=== PATIENT | male | born 1965 | race Hispanic/Latino ===

== ENCOUNTER 2020-07-07 11:09 | Inpatient (IN) | payer OTHER ==
[~2020-07-07] VITALS: Ht 167.6 cm; Wt 86.2 kg
[2020-07-07 11:26] LABS: ABG BASE EXCESS 0.7 mmol/L (-2.0-3.0); ABG HCO3 23.3 mmol/L (21.0-28.0); ABG OXYGEN SATURATION 83.6 % (95.0-99.0); ABG PCO2 32 mmHg (35-48)
[2020-07-07 11:31] LABS: BASOPHILS % (AUTO) 0.3 % (0.0-5.0); EOSINOPHILS % (AUTO) 1.5 % (0.0-8.0); HEMATOCRIT 45.6 % (42-54); LYMPHOCYTES % (AUTO) 11.4 % (21.0-51.0); MEAN CORPUSCULAR HEMOGLOBIN 29.6 pg (27.0-33.0); MEAN CORPUSCULAR HGB CONC 32.5 g/dL (32.0-36.0); MEAN CORPUSCULAR VOLUME 91.2 fL (79-99); NEUTROPHILS % (AUTO) 80.1 % (40.0-77.0); PLATELET COUNT (AUTO) 210 K/uL (130-400); WHITE BLOOD COUNT (AUTO) 11.3 K/uL (4.8-10.8)
[2020-07-07] MEDS ORDERED: ALBUTEROL INHALER 90MCG/INH IH ONE (11:32)
[2020-07-07] MEDS ORDERED: DEXAMETHASONE SOD PHOSPHATE 10MG/ML 1ML VIAL ONE (11:33)
[2020-07-07] MEDS ORDERED: ASPIRIN 325 MG TABLET ONE (11:33)
[2020-07-07] MEDS ORDERED: AZITHROMYCIN 500MG+NS 250ML 250 ML IV ONE (11:34)
[2020-07-07] MEDS ORDERED: CEFTRIAXONE SODIUM 1 GM ONE (11:34)
[2020-07-07 11:36] LABS: CARBON DIOXIDE 24 mmol/L (21-32); CHLORIDE 101 mmol/L (101-111); CREATININE 0.8 mg/dL (0.5-1.5); GLOMERULAR FILTR. RATE CALC 107 mL/min (>60); GLUCOSE,RANDOM 136 mg/dL (70-105); INR 1.19 (0.85-1.15); POTASSIUM 4.6 mmol/L (3.5-5.1); PROTHROMBIN TIME 12.8 SEC (9.6-11.6); SODIUM SERUM 133 mmol/L (136-145); UREA NITROGEN, BLOOD 12 mg/dL (7-18)
[2020-07-07 11:47] LABS: ALANINE AMINOTRANSFERASE 38 U/L (12-78); ALBUMIN 2.1 g/dL (3.5-5.0); ASPARTATE AMINOTRANSFERASE 49 U/L (10-37); BILIRUBIN,TOTAL 0.8 mg/dL (0.2-1.0); CREATINE KINASE, TOTAL 79 U/L (21-232); MYOGLOBIN 29 ng/mL (10-92); TOTAL PROTEIN, SERUM 8.3 g/dL (6.0-8.3); TROPONIN I < 0.04 ng/mL (0.00-0.06)
[2020-07-07 12:37] LABS: APPEARANCE,URINE Clear (CLEAR); BILIRUBIN,URINE Negative (NEGATIVE); COLOR,URINE Yellow (YELLOW); GLUCOSE, URINE (UA) Negative (NEGATIVE); KETONES,URINE 15 mg/dL (NEGATIVE); LEUKOCYTE ESTERASE ,URINE Negative (NEGATIVE); NITRATE,URINE Negative (NEGATIVE); OCCULT BLOOD,URINE Moderate (NEGATIVE); PROTEIN,URINE Negative (NEGATIVE)
[2020-07-07 12:57] LABS: BACTERIA,URINE None Seen /HPF (None Seen); TRANSITIONAL EPI CELLS,URINE Moderate /HPF (None Seen); WBC,URINE None Seen /HPF (0-1)
[2020-07-07] MEDS: DOXYCYCLINE 100MG+NS 250ML 250 ML IV SCH (14:00)
[2020-07-07] MEDS ORDERED: VANCOMYCIN PROTOCOL PER PHARMACY IV SCH (14:00)
[2020-07-07] MEDS: CEFEPIME HCL 2 GM VIAL IVP SCH ×2 (14:00→22:00)
[2020-07-07] MEDS: FUROSEMIDE 10 MG/ML 2ML VIAL IV SCH ×2 (14:00→22:00)
[2020-07-07] MEDS ORDERED: ERGOCALCIFEROL (VITAMIN D2) 50,000 UNIT CAPSULE PO ONE (14:15)
[2020-07-07 14:25] LABS: MAGNESIUM 2.3 mg/dL (1.80-2.40)
[2020-07-07 14:32] LABS: CRP QUANTITATIVE 162.3 mg/L (0.00-9.0)
[2020-07-07] MEDS: ENOXAPARIN SODIUM 40 MG/0.4 ML SYRINGE SQ SCH ×2 (15:00→21:00)
[2020-07-07] MEDS ORDERED: COMPOUND IV REFRIGERATED 1 EACH IVSOLN MISC PRN (15:00)
[2020-07-07] MEDS ORDERED: ENOXAPARIN SODIUM 40 MG/0.4 ML SYRINGE SQ ONE ×2 (15:06→22:30)
[2020-07-07] MEDS ORDERED: ERGOCALCIFEROL (VITAMIN D2) 50,000 UNIT CAPSULE ONE (15:06)
[2020-07-07] MEDS ORDERED: CEFEPIME HCL 2 GM VIAL ONE ×2 (16:14→22:30)
[2020-07-07] MEDS ORDERED: FUROSEMIDE 10 MG/ML 2ML VIAL ONE ×2 (16:14→22:29)
[2020-07-07] MEDS ORDERED: DOXYCYCLINE 100MG+NS 250ML 250 ML IV ONE (16:15)
[2020-07-07] MEDS: INSULIN HUMULIN R 100 UNIT/ML 3ML SQ SCH ×2 (16:30→21:00)
[2020-07-07] MEDS: VANCOMYCIN 1.75 GM in SODIUM CHLORIDE 0.9% 250 ML IV SCH (17:00)
[2020-07-07 17:19] LABS: HEMOGLOBIN A1C 7.4 % (4.0-6.0)
[2020-07-07] MEDS: FAMOTIDINE/PF 20 MG/2 ML VIAL IV SCH (21:00)
[2020-07-07] MEDS ORDERED: FAMOTIDINE/PF 20 MG/2 ML VIAL IV ONE (22:30)
[2020-07-07] MEDS ORDERED: SODIUM CHLORIDE 0.9% 50 ML IV ONE (22:31)
[2020-07-08] VITALS (67 sets, daily range): BP systolic 93–146; BP diastolic 60–93
[2020-07-08] MEDS: DOXYCYCLINE 100MG+NS 250ML 250 ML IV SCH ×2 (02:00→12:53)
[2020-07-08 04:40] LABS: BASOPHILS % (AUTO) 0.1 % (0.0-5.0); EOSINOPHILS % (AUTO) 0.1 % (0.0-8.0); HEMATOCRIT 43.6 % (42-54); LYMPHOCYTES % (AUTO) 9.2 % (21.0-51.0); MEAN CORPUSCULAR HEMOGLOBIN 29.8 pg (27.0-33.0); MEAN CORPUSCULAR VOLUME 90.3 fL (79-99); MONOCYTES % (AUTO) 5.7 % (3.0-13.0); NEUTROPHILS % (AUTO) 83.4 % (40.0-77.0); PLATELET COUNT (AUTO) 416 K/uL (130-400); RED BLOOD CELL COUNT(AUTO) 4.83 MIL/uL (4.50-6.20); RED CELL DISTRIBUTION WIDTH 13.6 % (11.0-15.5); WHITE BLOOD COUNT (AUTO) 12.1 K/uL (4.8-10.8)
[2020-07-08 05:02] LABS: BILIRUBIN,TOTAL 0.5 mg/dL (0.2-1.0); CREATININE 0.9 mg/dL (0.5-1.5); CRP QUANTITATIVE 124.9 mg/L (0.00-9.0); POTASSIUM 4.4 mmol/L (3.5-5.1)
[2020-07-08] MEDS: CEFEPIME HCL 2 GM VIAL IVP SCH ×3 (06:18→22:13)
[2020-07-08] MEDS: FUROSEMIDE 10 MG/ML 2ML VIAL IV SCH ×3 (06:18→22:13)
[2020-07-08] MEDS: INSULIN HUMULIN R 100 UNIT/ML 3ML SQ SCH ×4 (07:30→21:00)
[2020-07-08 07:36] LABS: ABG BASE EXCESS 0.3 mmol/L (-2.0-3.0); ABG HCO3 22.9 mmol/L (21.0-28.0); ABG OXYGEN SATURATION 92.3 % (95.0-99.0); ABG PCO2 32 mmHg (35-48)
[2020-07-08] MEDS: ENOXAPARIN SODIUM 40 MG/0.4 ML SYRINGE SQ SCH ×2 (09:21→21:23)
[2020-07-08] MEDS: DEXAMETHASONE SOD PHOSPHATE 4 MG/ML 1ML VIAL IVP SCH (09:21)
[2020-07-08] MEDS: FAMOTIDINE/PF 20 MG/2 ML VIAL IV SCH ×2 (09:21→21:21)
[2020-07-08] MEDS: VANCOMYCIN 1.75 GM in SODIUM CHLORIDE 0.9% 250 ML IV SCH ×2 (10:24→21:21)
[2020-07-08] MEDS ORDERED: PHARMACY COMMUNICATION**REMDESIVIR ORDER MISC SCH (20:15)
[2020-07-08] MEDS ORDERED: COMPOUND IV REFRIGERATED 1 EACH IVSOLN MISC PRN (20:45)
[2020-07-08] MEDS ORDERED: REMDESIVIR (EUA) 520 200 MG in SODIUM CHLORIDE 0.9% 250 ML IV SCH (20:45)
[2020-07-09] VITALS (35 sets, daily range): BP systolic 77–146; BP diastolic 48–90
[2020-07-09] MEDS: DOXYCYCLINE 100MG+NS 250ML 250 ML IV SCH ×2 (01:25→13:46)
[2020-07-09 03:51] LABS: BASOPHILS % (AUTO) 0.2 % (0.0-5.0); EOSINOPHILS % (AUTO) 0.2 % (0.0-8.0); LYMPHOCYTES % (AUTO) 12.7 % (21.0-51.0); MEAN CORPUSCULAR HEMOGLOBIN 29.4 pg (27.0-33.0); MEAN CORPUSCULAR HGB CONC 32.2 g/dL (32.0-36.0); MEAN CORPUSCULAR VOLUME 91.1 fL (79-99); MONOCYTES % (AUTO) 7.2 % (3.0-13.0); NEUTROPHILS % (AUTO) 78.6 % (40.0-77.0); PLATELET COUNT (AUTO) 395 K/uL (130-400); RED BLOOD CELL COUNT(AUTO) 4.94 MIL/uL (4.50-6.20); RED CELL DISTRIBUTION WIDTH 13.8 % (11.0-15.5); WHITE BLOOD COUNT (AUTO) 10.8 K/uL (4.8-10.8)
[2020-07-09 04:06] LABS: BILIRUBIN,TOTAL 0.5 mg/dL (0.2-1.0); CRP QUANTITATIVE 57.3 mg/L (0.00-9.0); POTASSIUM 4.1 mmol/L (3.5-5.1)
[2020-07-09] MEDS: CEFEPIME HCL 2 GM VIAL IVP SCH ×3 (06:16→22:29)
[2020-07-09] MEDS: FUROSEMIDE 10 MG/ML 2ML VIAL IV SCH ×3 (06:16→22:29)
[2020-07-09] MEDS: REMDESIVIR LABS MISC SCH (06:20)
[2020-07-09] MEDS: INSULIN HUMULIN R 100 UNIT/ML 3ML SQ SCH ×4 (06:22→21:25)
[2020-07-09] MEDS: VANCOMYCIN 1.75 GM in SODIUM CHLORIDE 0.9% 250 ML IV SCH ×2 (08:36→21:20)
[2020-07-09] MEDS: DEXAMETHASONE SOD PHOSPHATE 4 MG/ML 1ML VIAL IVP SCH (08:37)
[2020-07-09] MEDS: FAMOTIDINE/PF 20 MG/2 ML VIAL IV SCH ×2 (08:37→21:20)
[2020-07-09] MEDS: ENOXAPARIN SODIUM 40 MG/0.4 ML SYRINGE SQ SCH ×2 (08:37→21:21)
[2020-07-09] MEDS: BARICITINIB (EUA) 2 MG TABLET PO SCH (18:32)
[2020-07-09] MEDS ORDERED: PHARMACY COMMUNICATION MISC SCH (20:15)
[2020-07-09] MEDS: REMDESIVIR (EUA) 520 100 MG in SODIUM CHLORIDE 0.9% 250 ML IV SCH (21:20)
[2020-07-09] MEDS: LACTULOSE 20 GM/30 ML UDCUP PO SCH (21:21)
[2020-07-10] VITALS (36 sets, daily range): BP systolic 97–136; BP diastolic 64–84
[2020-07-10] MEDS: DOXYCYCLINE 100MG+NS 250ML 250 ML IV SCH ×2 (02:00→13:48)
[2020-07-10 04:15] LABS: BASOPHILS % (AUTO) 0.3 % (0.0-5.0); EOSINOPHILS % (AUTO) 1.5 % (0.0-8.0); HEMATOCRIT 44.6 % (42-54); LYMPHOCYTES % (AUTO) 20.3 % (21.0-51.0); MEAN CORPUSCULAR HEMOGLOBIN 29.4 pg (27.0-33.0); MEAN CORPUSCULAR HGB CONC 32.3 g/dL (32.0-36.0); MEAN CORPUSCULAR VOLUME 91.2 fL (79-99); MONOCYTES % (AUTO) 8.4 % (3.0-13.0); NEUTROPHILS % (AUTO) 68.6 % (40.0-77.0); PLATELET COUNT (AUTO) 409 K/uL (130-400); RED BLOOD CELL COUNT(AUTO) 4.89 MIL/uL (4.50-6.20); RED CELL DISTRIBUTION WIDTH 13.8 % (11.0-15.5); WHITE BLOOD COUNT (AUTO) 10.9 K/uL (4.8-10.8)
[2020-07-10 04:31] LABS: ALBUMIN 2.1 g/dL (3.5-5.0); BILIRUBIN,TOTAL 0.7 mg/dL (0.2-1.0); CREATININE 1.1 mg/dL (0.5-1.5); CRP QUANTITATIVE 27.9 mg/L (0.00-9.0); POTASSIUM 3.7 mmol/L (3.5-5.1); TOTAL PROTEIN, SERUM 7.9 g/dL (6.0-8.3)
[2020-07-10] MEDS: FUROSEMIDE 10 MG/ML 2ML VIAL IV SCH ×3 (06:17→22:42)
[2020-07-10] MEDS: CEFEPIME HCL 2 GM VIAL IVP SCH ×3 (06:17→22:43)
[2020-07-10] MEDS: REMDESIVIR LABS MISC SCH (06:18)
[2020-07-10] MEDS: INSULIN HUMULIN R 100 UNIT/ML 3ML SQ SCH ×4 (06:53→22:05)
[2020-07-10] MEDS: BARICITINIB (EUA) 2 MG TABLET PO SCH (09:51)
[2020-07-10] MEDS: FAMOTIDINE/PF 20 MG/2 ML VIAL IV SCH ×2 (09:52→21:52)
[2020-07-10] MEDS: LACTULOSE 20 GM/30 ML UDCUP PO SCH ×2 (09:53→21:52)
[2020-07-10] MEDS: DEXAMETHASONE SOD PHOSPHATE 4 MG/ML 1ML VIAL IVP SCH (09:54)
[2020-07-10] MEDS: VANCOMYCIN 1.75 GM in SODIUM CHLORIDE 0.9% 250 ML IV SCH ×2 (09:54→22:42)
[2020-07-10] MEDS: ENOXAPARIN SODIUM 40 MG/0.4 ML SYRINGE SQ SCH ×2 (09:54→21:54)
[2020-07-10 14:14] LABS: CREATININE 1.1 mg/dL (0.5-1.5); POTASSIUM 3.9 mmol/L (3.5-5.1)
[2020-07-10] MEDS: REMDESIVIR (EUA) 520 100 MG in SODIUM CHLORIDE 0.9% 250 ML IV SCH (21:42)
[2020-07-11] VITALS (23 sets, daily range): BP systolic 95–133; BP diastolic 53–88
[2020-07-11] MEDS: DOXYCYCLINE 100MG+NS 250ML 250 ML IV SCH ×2 (02:25→14:00)
[2020-07-11] MEDS: REMDESIVIR LABS MISC SCH (06:00)
[2020-07-11] MEDS: FUROSEMIDE 10 MG/ML 2ML VIAL IV SCH (07:12)
[2020-07-11] MEDS: CEFEPIME HCL 2 GM VIAL IVP SCH ×3 (07:12→22:24)
[2020-07-11] MEDS: INSULIN HUMULIN R 100 UNIT/ML 3ML SQ SCH ×4 (07:30→22:12)
[2020-07-11] MEDS: FAMOTIDINE/PF 20 MG/2 ML VIAL IV SCH ×2 (08:14→21:00)
[2020-07-11] MEDS: DEXAMETHASONE SOD PHOSPHATE 4 MG/ML 1ML VIAL IVP SCH (08:14)
[2020-07-11] MEDS: LACTULOSE 20 GM/30 ML UDCUP PO SCH ×2 (08:15→22:17)
[2020-07-11] MEDS: ENOXAPARIN SODIUM 40 MG/0.4 ML SYRINGE SQ SCH ×2 (08:16→22:14)
[2020-07-11] MEDS: BARICITINIB (EUA) 2 MG TABLET PO SCH (08:27)
[2020-07-11] MEDS: VANCOMYCIN 1.75 GM in SODIUM CHLORIDE 0.9% 250 ML IV SCH ×2 (09:00→22:10)
[2020-07-11 10:02] LABS: BASOPHILS % (AUTO) 0.2 % (0.0-5.0); EOSINOPHILS % (AUTO) 2.6 % (0.0-8.0); LYMPHOCYTES % (AUTO) 5.6 % (21.0-51.0); MEAN CORPUSCULAR HEMOGLOBIN 29.9 pg (27.0-33.0); MEAN CORPUSCULAR HGB CONC 32.7 g/dL (32.0-36.0); MEAN CORPUSCULAR VOLUME 91.4 fL (79-99); MONOCYTES % (AUTO) 4.5 % (3.0-13.0); NEUTROPHILS % (AUTO) 86.4 % (40.0-77.0); PLATELET COUNT (AUTO) 406 K/uL (130-400); RED BLOOD CELL COUNT(AUTO) 5.36 MIL/uL (4.50-6.20); RED CELL DISTRIBUTION WIDTH 13.6 % (11.0-15.5); WHITE BLOOD COUNT (AUTO) 16.7 K/uL (4.8-10.8)
[2020-07-11 10:20] LABS: CRP QUANTITATIVE 31.5 mg/L (0.00-9.0); POTASSIUM 3.4 mmol/L (3.5-5.1)
[2020-07-11 17:22] LABS: ALBUMIN 2.7 g/dL (3.5-5.0); BILIRUBIN,DIRECT 0.2 mg/dL (0.0-0.3); BILIRUBIN,TOTAL 0.7 mg/dL (0.2-1.0); TOTAL PROTEIN, SERUM 8.2 g/dL (6.0-8.3)
[2020-07-11] MEDS: REMDESIVIR (EUA) 520 100 MG in SODIUM CHLORIDE 0.9% 250 ML IV SCH (20:23)
[2020-07-12] VITALS (21 sets, daily range): BP systolic 103–138; BP diastolic 46–103
[2020-07-12] MEDS: DOXYCYCLINE 100MG+NS 250ML 250 ML IV SCH ×2 (03:22→13:31)
[2020-07-12] MEDS: REMDESIVIR LABS MISC SCH (06:00)
[2020-07-12 06:05] LABS: BASOPHILS % (AUTO) 0.1 % (0.0-5.0); EOSINOPHILS % (AUTO) 2.4 % (0.0-8.0); HEMATOCRIT 44.2 % (42-54); LYMPHOCYTES % (AUTO) 11.4 % (21.0-51.0); MEAN CORPUSCULAR HEMOGLOBIN 29.3 pg (27.0-33.0); MEAN CORPUSCULAR HGB CONC 31.4 g/dL (32.0-36.0); MEAN CORPUSCULAR VOLUME 93.1 fL (79-99); MONOCYTES % (AUTO) 6.2 % (3.0-13.0); NEUTROPHILS % (AUTO) 79.2 % (40.0-77.0); PLATELET COUNT (AUTO) 348 K/uL (130-400); RED BLOOD CELL COUNT(AUTO) 4.75 MIL/uL (4.50-6.20); RED CELL DISTRIBUTION WIDTH 13.6 % (11.0-15.5); WHITE BLOOD COUNT (AUTO) 16.1 K/uL (4.8-10.8)
[2020-07-12] MEDS: CEFEPIME HCL 2 GM VIAL IVP SCH ×3 (06:10→21:53)
[2020-07-12 06:15] LABS: BILIRUBIN,TOTAL 0.5 mg/dL (0.2-1.0); CREATININE 0.8 mg/dL (0.5-1.5); POTASSIUM 3.9 mmol/L (3.5-5.1); TOTAL PROTEIN, SERUM 7.1 g/dL (6.0-8.3)
[2020-07-12] MEDS: INSULIN HUMULIN R 100 UNIT/ML 3ML SQ SCH ×4 (07:30→21:40)
[2020-07-12] MEDS: LACTULOSE 20 GM/30 ML UDCUP PO SCH ×2 (08:24→20:51)
[2020-07-12] MEDS: FAMOTIDINE/PF 20 MG/2 ML VIAL IV SCH ×2 (08:26→20:51)
[2020-07-12] MEDS: POTASSIUM CHLORIDE 20 MEQ ERTAB PO SCH (08:27)
[2020-07-12] MEDS: DEXAMETHASONE SOD PHOSPHATE 4 MG/ML 1ML VIAL IVP SCH (08:27)
[2020-07-12] MEDS: VANCOMYCIN 1.75 GM in SODIUM CHLORIDE 0.9% 250 ML IV SCH ×2 (08:28→21:53)
[2020-07-12] MEDS: ENOXAPARIN SODIUM 40 MG/0.4 ML SYRINGE SQ SCH ×2 (08:29→20:52)
[2020-07-12] MEDS: BARICITINIB (EUA) 2 MG TABLET PO SCH (09:22)
[2020-07-12] MEDS: REMDESIVIR (EUA) 520 100 MG in SODIUM CHLORIDE 0.9% 250 ML IV SCH (19:45)
[2020-07-13] VITALS (26 sets, daily range): BP systolic 97–141; BP diastolic 35–83
[2020-07-13] MEDS: DOXYCYCLINE 100MG+NS 250ML 250 ML IV SCH ×2 (02:13→15:17)
[2020-07-13] MEDS: REMDESIVIR LABS MISC SCH (06:00)
[2020-07-13 06:07] LABS: BASOPHILS % (AUTO) 0.1 % (0.0-5.0); HEMATOCRIT 44.5 % (42-54); LYMPHOCYTES % (AUTO) 9.2 % (21.0-51.0); MEAN CORPUSCULAR HGB CONC 31.2 g/dL (32.0-36.0); MEAN CORPUSCULAR VOLUME 92.7 fL (79-99); MONOCYTES % (AUTO) 5.8 % (3.0-13.0); NEUTROPHILS % (AUTO) 82.1 % (40.0-77.0); PLATELET COUNT (AUTO) 336 K/uL (130-400); RED CELL DISTRIBUTION WIDTH 13.5 % (11.0-15.5); WHITE BLOOD COUNT (AUTO) 17.2 K/uL (4.8-10.8)
[2020-07-13 06:24] LABS: CREATININE 0.7 mg/dL (0.5-1.5); CRP QUANTITATIVE 76.6 mg/L (0.00-9.0); POTASSIUM 4.2 mmol/L (3.5-5.1)
[2020-07-13] MEDS: CEFEPIME HCL 2 GM VIAL IVP SCH ×3 (06:53→23:00)
[2020-07-13] MEDS: INSULIN HUMULIN R 100 UNIT/ML 3ML SQ SCH ×4 (07:08→21:00)
[2020-07-13] MEDS: DEXAMETHASONE SOD PHOSPHATE 4 MG/ML 1ML VIAL IVP SCH (08:54)
[2020-07-13] MEDS: FAMOTIDINE/PF 20 MG/2 ML VIAL IV SCH ×2 (08:54→20:52)
[2020-07-13] MEDS: LACTULOSE 20 GM/30 ML UDCUP PO SCH ×2 (08:55→20:54)
[2020-07-13] MEDS: ENOXAPARIN SODIUM 40 MG/0.4 ML SYRINGE SQ SCH ×2 (08:55→20:58)
[2020-07-13] MEDS: POTASSIUM CHLORIDE 20 MEQ ERTAB PO SCH (08:55)
[2020-07-13] MEDS: VANCOMYCIN 1.75 GM in SODIUM CHLORIDE 0.9% 250 ML IV SCH (09:00)
[2020-07-13] MEDS: BARICITINIB (EUA) 2 MG TABLET PO SCH (09:07)
[2020-07-14] VITALS (25 sets, daily range): BP systolic 82–139; BP diastolic 36–90
[2020-07-14] MEDS: DOXYCYCLINE 100MG+NS 250ML 250 ML IV SCH ×2 (02:15→14:11)
[2020-07-14] MEDS: CEFEPIME HCL 2 GM VIAL IVP SCH ×3 (05:58→22:24)
[2020-07-14 06:01] LABS: BASOPHILS % (AUTO) 0.1 % (0.0-5.0); EOSINOPHILS % (AUTO) 2.1 % (0.0-8.0); HEMATOCRIT 45.3 % (42-54); LYMPHOCYTES % (AUTO) 9.5 % (21.0-51.0); MEAN CORPUSCULAR HGB CONC 32.9 g/dL (32.0-36.0); MEAN CORPUSCULAR VOLUME 91.3 fL (79-99); MONOCYTES % (AUTO) 6.3 % (3.0-13.0); NEUTROPHILS % (AUTO) 81.4 % (40.0-77.0); PLATELET COUNT (AUTO) 300 K/uL (130-400); RED BLOOD CELL COUNT(AUTO) 4.96 MIL/uL (4.50-6.20); RED CELL DISTRIBUTION WIDTH 13.6 % (11.0-15.5); WHITE BLOOD COUNT (AUTO) 14.7 K/uL (4.8-10.8)
[2020-07-14 06:13] LABS: CREATININE 0.7 mg/dL (0.5-1.5); POTASSIUM 4.1 mmol/L (3.5-5.1)
[2020-07-14] MEDS: INSULIN HUMULIN R 100 UNIT/ML 3ML SQ SCH ×4 (07:17→20:54)
[2020-07-14] MEDS: LACTULOSE 20 GM/30 ML UDCUP PO SCH ×2 (07:18→20:40)
[2020-07-14] MEDS: FAMOTIDINE/PF 20 MG/2 ML VIAL IV SCH ×2 (08:06→20:40)
[2020-07-14] MEDS: POTASSIUM CHLORIDE 20 MEQ ERTAB PO SCH (08:06)
[2020-07-14] MEDS: DEXAMETHASONE SOD PHOSPHATE 4 MG/ML 1ML VIAL IVP SCH (08:06)
[2020-07-14] MEDS: ENOXAPARIN SODIUM 40 MG/0.4 ML SYRINGE SQ SCH ×2 (08:07→20:42)
[2020-07-14] MEDS: BARICITINIB (EUA) 2 MG TABLET PO SCH (10:23)
[2020-07-15] VITALS (23 sets, daily range): BP systolic 103–141; BP diastolic 51–86
[2020-07-15] MEDS: DOXYCYCLINE 100MG+NS 250ML 250 ML IV SCH (02:13)
[2020-07-15 05:59] LABS: CREATININE 0.8 mg/dL (0.5-1.5); MAGNESIUM 2.3 mg/dL (1.80-2.40); POTASSIUM 4.5 mmol/L (3.5-5.1)
[2020-07-15 06:01] LABS: BASOPHILS % (AUTO) 0.1 % (0.0-5.0); EOSINOPHILS % (AUTO) 0.6 % (0.0-8.0); LYMPHOCYTES % (AUTO) 12.8 % (21.0-51.0); MEAN CORPUSCULAR HEMOGLOBIN 29.4 pg (27.0-33.0); MEAN CORPUSCULAR HGB CONC 31.6 g/dL (32.0-36.0); MEAN CORPUSCULAR VOLUME 93.1 fL (79-99); MONOCYTES % (AUTO) 7.2 % (3.0-13.0); NEUTROPHILS % (AUTO) 78.7 % (40.0-77.0); PLATELET COUNT (AUTO) 307 K/uL (130-400); RED BLOOD CELL COUNT(AUTO) 4.62 MIL/uL (4.50-6.20); RED CELL DISTRIBUTION WIDTH 13.7 % (11.0-15.5); WHITE BLOOD COUNT (AUTO) 9.7 K/uL (4.8-10.8)
[2020-07-15] MEDS: CEFEPIME HCL 2 GM VIAL IVP SCH ×3 (06:08→22:37)
[2020-07-15] MEDS: INSULIN HUMULIN R 100 UNIT/ML 3ML SQ SCH ×4 (06:46→21:48)
[2020-07-15] MEDS: BARICITINIB (EUA) 2 MG TABLET PO SCH (09:00)
[2020-07-15] MEDS: FAMOTIDINE/PF 20 MG/2 ML VIAL IV SCH ×2 (09:03→21:45)
[2020-07-15] MEDS: LACTULOSE 20 GM/30 ML UDCUP PO SCH ×2 (09:03→21:45)
[2020-07-15] MEDS: DEXAMETHASONE SOD PHOSPHATE 4 MG/ML 1ML VIAL IVP SCH (09:03)
[2020-07-15] MEDS: ENOXAPARIN SODIUM 40 MG/0.4 ML SYRINGE SQ SCH ×2 (09:04→21:46)
[2020-07-15] MEDS ORDERED: OXYMETAZOLINE HCL SPRAY 15 ML BOTTLE EN PRN (11:30)
[2020-07-15] MEDS: SODIUM CHLORIDE 45 ML SPRY EN SCH ×2 (15:42→21:57)
[2020-07-16] VITALS (22 sets, daily range): BP systolic 102–155; BP diastolic 39–102
[2020-07-16] MEDS ORDERED: NOREPINEPHRINE 4MG/NS 250ML 0 ML IV ONE (04:49)
[2020-07-16] MEDS: CEFEPIME HCL 2 GM VIAL IVP SCH ×3 (05:34→21:46)
[2020-07-16] MEDS: INSULIN HUMULIN R 100 UNIT/ML 3ML SQ SCH ×4 (06:48→21:55)
[2020-07-16 07:22] LABS: ABG BASE EXCESS 4.8 mmol/L (-2.0-3.0); ABG HCO3 29.4 mmol/L (21.0-28.0); ABG OXYGEN SATURATION 98.1 % (95.0-99.0); ABG PCO2 43 mmHg (35-48)
[2020-07-16] MEDS: FAMOTIDINE/PF 20 MG/2 ML VIAL IV SCH ×2 (08:18→21:45)
[2020-07-16] MEDS: LACTULOSE 20 GM/30 ML UDCUP PO SCH ×2 (08:18→21:00)
[2020-07-16] MEDS: DEXAMETHASONE SOD PHOSPHATE 4 MG/ML 1ML VIAL IVP SCH (08:19)
[2020-07-16] MEDS: ENOXAPARIN SODIUM 40 MG/0.4 ML SYRINGE SQ SCH ×2 (08:19→21:53)
[2020-07-16] MEDS: SODIUM CHLORIDE 45 ML SPRY EN SCH ×3 (08:21→21:00)
[2020-07-16] MEDS: BARICITINIB (EUA) 2 MG TABLET PO SCH (10:07)
[2020-07-17 04:36] VITALS: BP 126/72
[2020-07-17] MEDS: INSULIN HUMULIN R 100 UNIT/ML 3ML SQ SCH ×4 (05:52→21:09)
[2020-07-17] MEDS: CEFEPIME HCL 2 GM VIAL IVP SCH ×3 (06:05→20:51)
[2020-07-17 08:00] VITALS: BP 122/77
[2020-07-17] MEDS: LACTULOSE 20 GM/30 ML UDCUP PO SCH ×2 (09:00→20:50)
[2020-07-17] MEDS: DEXAMETHASONE SOD PHOSPHATE 4 MG/ML 1ML VIAL IVP SCH (10:01)
[2020-07-17] MEDS: BARICITINIB (EUA) 2 MG TABLET PO SCH (10:02)
[2020-07-17] MEDS: ENOXAPARIN SODIUM 40 MG/0.4 ML SYRINGE SQ SCH ×2 (10:02→20:51)
[2020-07-17] MEDS: SODIUM CHLORIDE 45 ML SPRY EN SCH ×3 (10:02→21:00)
[2020-07-17] MEDS: FAMOTIDINE/PF 20 MG/2 ML VIAL IV SCH ×2 (10:03→20:50)
[2020-07-17 11:39] VITALS: BP 125/68
[2020-07-17 16:00] VITALS: BP 105/68
[2020-07-17 19:57] VITALS: BP 114/77
[2020-07-17 23:44] VITALS: BP 113/73
[2020-07-18 03:49] VITALS: BP 127/78
[2020-07-18 05:28] LABS: ALBUMIN 2.3 g/dL (3.5-5.0); BILIRUBIN,TOTAL 0.4 mg/dL (0.2-1.0); TOTAL PROTEIN, SERUM 6.9 g/dL (6.0-8.3)
[2020-07-18 05:29] LABS: CREATININE 0.8 mg/dL (0.5-1.5)
[2020-07-18] MEDS: INSULIN HUMULIN R 100 UNIT/ML 3ML SQ SCH ×4 (05:34→21:09)
[2020-07-18] MEDS: CEFEPIME HCL 2 GM VIAL IVP SCH ×3 (06:11→21:05)
[2020-07-18 08:00] VITALS: BP 123/70
[2020-07-18] MEDS: BARICITINIB (EUA) 2 MG TABLET PO SCH (09:00)
[2020-07-18] MEDS: DEXAMETHASONE SOD PHOSPHATE 4 MG/ML 1ML VIAL IVP SCH (09:00)
[2020-07-18] MEDS: FAMOTIDINE/PF 20 MG/2 ML VIAL IV SCH ×2 (09:00→21:05)
[2020-07-18] MEDS: SODIUM CHLORIDE 45 ML SPRY EN SCH ×3 (09:01→21:00)
[2020-07-18] MEDS: LACTULOSE 20 GM/30 ML UDCUP PO SCH ×2 (09:01→21:00)
[2020-07-18] MEDS: ENOXAPARIN SODIUM 40 MG/0.4 ML SYRINGE SQ SCH (09:01)
[2020-07-18 12:26] VITALS: BP 137/78
[2020-07-18 16:00] VITALS: BP 116/80
[2020-07-18 20:13] VITALS: BP 133/79
[2020-07-18] MEDS: ACETAMINOPHEN 325 MG TAB PO PRN (21:07)
[2020-07-18 23:42] VITALS: BP 139/83
[2020-07-19 04:00] VITALS: BP 123/75
[2020-07-19] MEDS: CEFEPIME HCL 2 GM VIAL IVP SCH ×3 (05:26→21:02)
[2020-07-19 06:12] LABS: BASOPHILS % (AUTO) 0.1 % (0.0-5.0); EOSINOPHILS % (AUTO) 0.9 % (0.0-8.0); HEMATOCRIT 41.9 % (42-54); MEAN CORPUSCULAR HEMOGLOBIN 28.9 pg (27.0-33.0); MEAN CORPUSCULAR HGB CONC 31.5 g/dL (32.0-36.0); MEAN CORPUSCULAR VOLUME 91.7 fL (79-99); MONOCYTES % (AUTO) 9.3 % (3.0-13.0); PLATELET COUNT (AUTO) 270 K/uL (130-400); RED BLOOD CELL COUNT(AUTO) 4.57 MIL/uL (4.50-6.20); RED CELL DISTRIBUTION WIDTH 13.6 % (11.0-15.5); WHITE BLOOD COUNT (AUTO) 10.8 K/uL (4.8-10.8)
[2020-07-19] MEDS: INSULIN HUMULIN R 100 UNIT/ML 3ML SQ SCH ×4 (06:26→20:30)
[2020-07-19] MEDS: ACETAMINOPHEN 325 MG TAB PO PRN (06:28)
[2020-07-19 06:31] LABS: ALBUMIN 2.3 g/dL (3.5-5.0); BILIRUBIN,TOTAL 0.4 mg/dL (0.2-1.0); CREATININE 0.7 mg/dL (0.5-1.5); CRP QUANTITATIVE 9.6 mg/L (0.00-9.0); TOTAL PROTEIN, SERUM 6.7 g/dL (6.0-8.3)
[2020-07-19 08:00] VITALS: BP 138/78
[2020-07-19] MEDS: FAMOTIDINE/PF 20 MG/2 ML VIAL IV SCH ×2 (09:13→20:28)
[2020-07-19] MEDS: ENOXAPARIN SODIUM 40 MG/0.4 ML SYRINGE SQ SCH (09:13)
[2020-07-19] MEDS: BARICITINIB (EUA) 2 MG TABLET PO SCH (09:13)
[2020-07-19] MEDS: LACTULOSE 20 GM/30 ML UDCUP PO SCH ×2 (09:14→20:29)
[2020-07-19] MEDS: SODIUM CHLORIDE 45 ML SPRY EN SCH ×3 (09:14→21:02)
[2020-07-19] MEDS: DEXAMETHASONE SOD PHOSPHATE 4 MG/ML 1ML VIAL IVP SCH (09:14)
[2020-07-19] MEDS ORDERED: ONDANSETRON HCL 4 MG/2 ML VIAL ONE (10:02)
[2020-07-19 12:00] VITALS: BP 122/64
[2020-07-19 16:00] VITALS: BP 110/78
[2020-07-19 19:57] VITALS: BP 118/70
[2020-07-19 23:30] VITALS: BP 115/67
[2020-07-20 03:50] VITALS: BP 109/71
[2020-07-20 05:09] LABS: ALBUMIN 2.5 g/dL (3.5-5.0); BILIRUBIN,DIRECT 0.1 mg/dL (0.0-0.3); BILIRUBIN,TOTAL 0.5 mg/dL (0.2-1.0); TOTAL PROTEIN, SERUM 6.8 g/dL (6.0-8.3)
[2020-07-20 05:40] LABS: ALANINE AMINOTRANSFERASE 71 U/L (12-78); ALBUMIN 2.6 g/dL (3.5-5.0); AMYLASE 81 U/L (25-115); ASPARTATE AMINOTRANSFERASE 40 U/L (10-37); BILIRUBIN,TOTAL 0.5 mg/dL (0.2-1.0); CARBON DIOXIDE 29 mmol/L (21-32); CHLORIDE 103 mmol/L (101-111); CREATININE 0.9 mg/dL (0.5-1.5); GLOMERULAR FILTR. RATE CALC 93 mL/min (>60); GLUCOSE,RANDOM 117 mg/dL (70-105); LACTATE DEHYDROGENASE 197 U/L (81-234); LIPASE 180 U/L (114-286); POTASSIUM 4.2 mmol/L (3.5-5.1); SODIUM SERUM 139 mmol/L (136-145); TOTAL PROTEIN, SERUM 6.5 g/dL (6.0-8.3); UREA NITROGEN, BLOOD 24 mg/dL (7-18)
[2020-07-20 05:58] LABS: CRP QUANTITATIVE < 2.00 mg/L (0.00-9.0)
[2020-07-20] MEDS: INSULIN HUMULIN R 100 UNIT/ML 3ML SQ SCH ×4 (06:11→20:24)
[2020-07-20] MEDS: CEFEPIME HCL 2 GM VIAL IVP SCH ×3 (06:11→21:47)
[2020-07-20 08:00] VITALS: BP 115/68
[2020-07-20] MEDS: SODIUM CHLORIDE 45 ML SPRY EN SCH ×3 (09:00→21:28)
[2020-07-20] MEDS: DEXAMETHASONE SOD PHOSPHATE 4 MG/ML 1ML VIAL IVP SCH (09:45)
[2020-07-20] MEDS: FAMOTIDINE/PF 20 MG/2 ML VIAL IV SCH ×2 (09:45→20:26)
[2020-07-20] MEDS: LACTULOSE 20 GM/30 ML UDCUP PO SCH ×2 (09:46→20:26)
[2020-07-20] MEDS: ENOXAPARIN SODIUM 40 MG/0.4 ML SYRINGE SQ SCH (09:46)
[2020-07-20] MEDS: BARICITINIB (EUA) 2 MG TABLET PO SCH (10:08)
[2020-07-20 12:00] VITALS: BP 110/70
[2020-07-20] MEDS ORDERED: ONDANSETRON 4 MG TABLET PO PRN (12:30)
[2020-07-20 16:00] VITALS: BP 128/64
[2020-07-20 19:00] VITALS: BP 116/77
[2020-07-20 23:00] VITALS: BP 117/76
[2020-07-21 03:00] VITALS: BP 137/86
[2020-07-21 05:27] LABS: BASOPHILS % (AUTO) 0.1 % (0.0-5.0); EOSINOPHILS % (AUTO) 1.2 % (0.0-8.0); HEMATOCRIT 41.9 % (42-54); LYMPHOCYTES % (AUTO) 7.8 % (21.0-51.0); MEAN CORPUSCULAR HEMOGLOBIN 29.9 pg (27.0-33.0); MEAN CORPUSCULAR HGB CONC 32.7 g/dL (32.0-36.0); MEAN CORPUSCULAR VOLUME 91.5 fL (79-99); MONOCYTES % (AUTO) 8.4 % (3.0-13.0); NEUTROPHILS % (AUTO) 81.7 % (40.0-77.0); PLATELET COUNT (AUTO) 256 K/uL (130-400); RED BLOOD CELL COUNT(AUTO) 4.58 MIL/uL (4.50-6.20); RED CELL DISTRIBUTION WIDTH 13.8 % (11.0-15.5); WHITE BLOOD COUNT (AUTO) 13.8 K/uL (4.8-10.8)
[2020-07-21 05:44] LABS: ALBUMIN 2.6 g/dL (3.5-5.0); BILIRUBIN,TOTAL 0.7 mg/dL (0.2-1.0); CREATININE 0.7 mg/dL (0.5-1.5); POTASSIUM 3.9 mmol/L (3.5-5.1); TOTAL PROTEIN, SERUM 6.7 g/dL (6.0-8.3)
[2020-07-21] MEDS: CEFEPIME HCL 2 GM VIAL IVP SCH (06:13)
[2020-07-21] MEDS: INSULIN HUMULIN R 100 UNIT/ML 3ML SQ SCH ×4 (07:30→21:00)
[2020-07-21 07:59] VITALS: BP 128/76
[2020-07-21] MEDS: LACTULOSE 20 GM/30 ML UDCUP PO SCH ×2 (08:08→21:01)
[2020-07-21] MEDS: ENOXAPARIN SODIUM 40 MG/0.4 ML SYRINGE SQ SCH (08:08)
[2020-07-21] MEDS: FAMOTIDINE/PF 20 MG/2 ML VIAL IV SCH ×2 (08:10→21:01)
[2020-07-21] MEDS: DEXAMETHASONE SOD PHOSPHATE 4 MG/ML 1ML VIAL IVP SCH (08:10)
[2020-07-21] MEDS: SODIUM CHLORIDE 45 ML SPRY EN SCH ×3 (09:04→21:02)
[2020-07-21] MEDS: BARICITINIB (EUA) 2 MG TABLET PO SCH (09:04)
[2020-07-21 12:00] VITALS: BP 119/84
[2020-07-21 16:00] VITALS: BP 122/73
[2020-07-21 20:00] VITALS: BP 132/77
[2020-07-21] MEDS: ACETAMINOPHEN 325 MG TAB PO PRN (21:02)
[2020-07-22] VITALS: BP 146/81
[2020-07-22] MEDS: ACETAMINOPHEN 325 MG TAB PO PRN (04:03)
[2020-07-22 04:08] VITALS: BP 146/92
[2020-07-22 06:18] LABS: BASOPHILS % (AUTO) 0.1 % (0.0-5.0); EOSINOPHILS % (AUTO) 1.9 % (0.0-8.0); HEMATOCRIT 41.7 % (42-54); LYMPHOCYTES % (AUTO) 11.6 % (21.0-51.0); MEAN CORPUSCULAR HEMOGLOBIN 30.1 pg (27.0-33.0); MEAN CORPUSCULAR HGB CONC 33.1 g/dL (32.0-36.0); MONOCYTES % (AUTO) 11.2 % (3.0-13.0); NEUTROPHILS % (AUTO) 74.6 % (40.0-77.0); PLATELET COUNT (AUTO) 222 K/uL (130-400); RED BLOOD CELL COUNT(AUTO) 4.58 MIL/uL (4.50-6.20); RED CELL DISTRIBUTION WIDTH 14.1 % (11.0-15.5); WHITE BLOOD COUNT (AUTO) 11.6 K/uL (4.8-10.8)
[2020-07-22 06:40] LABS: ALBUMIN 2.5 g/dL (3.5-5.0); BILIRUBIN,TOTAL 0.6 mg/dL (0.2-1.0); CREATININE 0.8 mg/dL (0.5-1.5); TOTAL PROTEIN, SERUM 6.9 g/dL (6.0-8.3)
[2020-07-22] MEDS: INSULIN HUMULIN R 100 UNIT/ML 3ML SQ SCH ×2 (07:30→11:30)
[2020-07-22] MEDS: FAMOTIDINE/PF 20 MG/2 ML VIAL IV SCH (08:05)
[2020-07-22] MEDS: DEXAMETHASONE SOD PHOSPHATE 4 MG/ML 1ML VIAL IVP SCH (08:05)
[2020-07-22 08:06] VITALS: BP 142/90
[2020-07-22] MEDS: LACTULOSE 20 GM/30 ML UDCUP PO SCH (08:06)
[2020-07-22] MEDS: ENOXAPARIN SODIUM 40 MG/0.4 ML SYRINGE SQ SCH (08:06)
[2020-07-22] MEDS: SODIUM CHLORIDE 45 ML SPRY EN SCH ×2 (08:09→14:28)
[2020-07-22] MEDS: BARICITINIB (EUA) 2 MG TABLET PO SCH (10:00)
[2020-07-22 11:50] VITALS: BP 130/76
[2020-07-22] MEDS ORDERED: APIX2.5T PO (11:54)
[2020-07-22] MEDS ORDERED: METF-444 PO (11:54)
[2020-07-22] MEDS ORDERED: PANT40TA54 PO (11:54)
== END 2020-07-22 16:30 | disposition home or self-care (01) | DRG 871 ==
LOC: EDH 11:09 → EDHIP 11:10 → 2BH 07-08 01:47 → 2AH 07-16 12:30
PROVIDERS: ADMIT Internal Medicine; ATTEND Internal Medicine
PROC: 5A0935A Assistance with Respiratory Ventilation, Less than 24 Consecutive Hours, High Flow/Velocity Cannula (ICD-10-PCS; 2020-07-07)
PROC: XW033E5 Introduction of Remdesivir Anti-infective into Peripheral Vein, Percutaneous Approach, New Technology Group 5 (ICD-10-PCS; principal; 2020-07-08)
PROC: 5A0935A Assistance with Respiratory Ventilation, Less than 24 Consecutive Hours, High Flow/Velocity Cannula (ICD-10-PCS; 2020-07-08)
PROC: 5A0935A Assistance with Respiratory Ventilation, Less than 24 Consecutive Hours, High Flow/Velocity Cannula (ICD-10-PCS; 2020-07-13)
PROC: 5A0935A Assistance with Respiratory Ventilation, Less than 24 Consecutive Hours, High Flow/Velocity Cannula (ICD-10-PCS; 2020-07-15)
PROC: 5A0935A Assistance with Respiratory Ventilation, Less than 24 Consecutive Hours, High Flow/Velocity Cannula (ICD-10-PCS; 2020-07-16)
DX: A41.9 Sepsis, unspecified organism (principal); U07.1 COVID-19; J12.82 Pneumonia due to coronavirus disease 2019; J80 Acute respiratory distress syndrome; D68.59 Other primary thrombophilia; E87.1 Hypo-osmolality and hyponatremia; I47.1 Supraventricular tachycardia; I82.612 Acute embolism and thrombosis of superficial veins of left upper extremity; E66.9 Obesity, unspecified; Z68.39 Body mass index [BMI] 39.0-39.9, adult; E11.65 Type 2 diabetes mellitus with hyperglycemia; I10 Essential (primary) hypertension; K12.30 Oral mucositis (ulcerative), unspecified; T38.0X5A Adverse effect of glucocorticoids and synthetic analogues, initial encounter; Z74.01 Bed confinement status; Y92.89 Other specified places as the place of occurrence of the external cause
CPT/HCPCS: 0099U; 36415; 36600; 70450; 71045; 72125; 80048; 80053; 80076; 80202; 81001; 82150; 82435; 82550; 82728; 82803; 82947; 82948; 83036; 83605; 83615; 83690; 83735; 83874; 83880; 84132; 84145; 84295; 84484; 85018; 85025; 85378; 85610; 85730; 86140; 86738; 86900; 86901; 87040; 87088; 87426; 87449; 87798; 93005; 93306; 93356; 93970; 93971; 94760; 97039; G0378; J0456; J0692; J0696; J1100; J1650; J1815; J1940; J2405; J3370; J3490; J7050; U0003

== ENCOUNTER 2020-08-02 21:10 | Inpatient (IN) | payer OTHER ==
[~2020-08-02] VITALS: Ht 165.1 cm; Wt 83.5 kg
[~2020-08-02 21:10] MED LIST: APIX2.5T PO; METF-444 PO; PANT40TA54 PO
[2020-08-02 21:55] LABS: BASOPHILS % (AUTO) 0.2 % (0.0-5.0); EOSINOPHILS % (AUTO) 3.4 % (0.0-8.0); HEMATOCRIT 37.1 % (42-54); LYMPHOCYTES % (AUTO) 16.8 % (21.0-51.0); MEAN CORPUSCULAR HEMOGLOBIN 29.1 pg (27.0-33.0); MEAN CORPUSCULAR HGB CONC 31.5 g/dL (32.0-36.0); MEAN CORPUSCULAR VOLUME 92.3 fL (79-99); MONOCYTES % (AUTO) 7.7 % (3.0-13.0); NEUTROPHILS % (AUTO) 71.3 % (40.0-77.0); PLATELET COUNT (AUTO) 188 K/uL (130-400); RED BLOOD CELL COUNT(AUTO) 4.02 MIL/uL (4.50-6.20); RED CELL DISTRIBUTION WIDTH 13.9 % (11.0-15.5)
[2020-08-02 22:01] LABS: CREATININE 0.6 mg/dL (0.5-1.5); POTASSIUM 3.8 mmol/L (3.5-5.1)
[2020-08-02 22:06] LABS: ALBUMIN 2.5 g/dL (3.5-5.0); BILIRUBIN,TOTAL 0.3 mg/dL (0.2-1.0); TOTAL PROTEIN, SERUM 7.8 g/dL (6.0-8.3)
[2020-08-02 22:07] LABS: INR 1.13 (0.85-1.15); PROTHROMBIN TIME 12.2 SEC (9.6-11.6)
[2020-08-02] MEDS ORDERED: AZITHROMYCIN 500MG+NS 250ML 250 ML IV ONE (22:36)
[2020-08-02] MEDS ORDERED: CEFTRIAXONE SODIUM 1 GM ONE (22:37)
[2020-08-02] MEDS ORDERED: IOHEXOL-350 75 ML VIAL IV ONE (22:59)
[2020-08-03] VITALS (7 sets, daily range): BP systolic 101–138; BP diastolic 70–89
[2020-08-03] MEDS ORDERED: DiphenhydrAMINE HCL 50 MG/ML VIAL IV PRN (00:45)
[2020-08-03] MEDS ORDERED: ACETAMINOPHEN 325 MG TAB PO PRN (00:45)
[2020-08-03] MEDS ORDERED: NITROGLYCERIN 0.4 MG SL TAB SL PRN (00:45)
[2020-08-03] MEDS ORDERED: LACTULOSE 20 GM/30 ML UDCUP PO PRN (00:45)
[2020-08-03] MEDS ORDERED: MAG HYDROX/AL HYDROX/SIMETH ES 30 ML SUSP UDCUP PO PRN (00:45)
[2020-08-03] MEDS ORDERED: DIPHENHYDRAMINE HCL 25 MG CAPSULE PO PRN (00:45)
[2020-08-03] MEDS ORDERED: ONDANSETRON HCL 4 MG/2 ML VIAL IV PRN (00:45)
[2020-08-03] MEDS ORDERED: ALBUTEROL SULFATE 0.083% 2.5 MG/3 ML INH IH PRN (00:45)
[2020-08-03] MEDS ORDERED: GUAIFENESIN-DM 200/20 MG 10 ML PO PRN (00:45)
[2020-08-03] MEDS: CEFEPIME HCL 2 GM VIAL IVP SCH ×2 (03:06→11:48)
[2020-08-03] MEDS: DOXYCYCLINE 100MG+NS 250ML 250 ML IV SCH ×2 (03:06→11:48)
[2020-08-03] MEDS: FAMOTIDINE/PF 20 MG/2 ML VIAL IV SCH ×2 (08:41→20:22)
[2020-08-03] MEDS: ENOXAPARIN SODIUM 40 MG/0.4 ML SYRINGE SQ SCH (08:42)
[2020-08-03] MEDS ORDERED: LIDOCAINE HCL-MPF 1% 2ML VIAL ONE (14:02)
[2020-08-03] MEDS ORDERED: LIDOCAINE HCL-MPF 1% 2ML VIAL IJ SCH (15:45)
[2020-08-03] MEDS ORDERED: MORPHINE SULFATE 2 MG/ML 1ML SYG IVP PRN (22:45)
[2020-08-03] MEDS ORDERED: MORPHINE SULFATE 2 MG/ML 1ML SYG ONE (22:55)
[2020-08-04] MEDS: CEFEPIME HCL 2 GM VIAL IVP SCH ×2 (00:12→12:33)
[2020-08-04] MEDS: DOXYCYCLINE 100MG+NS 250ML 250 ML IV SCH ×2 (00:12→12:33)
[2020-08-04 04:26] VITALS: BP 128/79
[2020-08-04 04:33] LABS: BASOPHILS % (AUTO) 0.3 % (0.0-5.0); EOSINOPHILS % (AUTO) 3.2 % (0.0-8.0); HEMATOCRIT 38.4 % (42-54); LYMPHOCYTES % (AUTO) 12.6 % (21.0-51.0); MEAN CORPUSCULAR HEMOGLOBIN 29.2 pg (27.0-33.0); MEAN CORPUSCULAR HGB CONC 32.3 g/dL (32.0-36.0); MEAN CORPUSCULAR VOLUME 90.4 fL (79-99); MONOCYTES % (AUTO) 7.8 % (3.0-13.0); NEUTROPHILS % (AUTO) 75.6 % (40.0-77.0); PLATELET COUNT (AUTO) 195 K/uL (130-400); RED BLOOD CELL COUNT(AUTO) 4.25 MIL/uL (4.50-6.20); WHITE BLOOD COUNT (AUTO) 10.8 K/uL (4.8-10.8)
[2020-08-04 04:50] LABS: ALBUMIN 2.5 g/dL (3.5-5.0); BILIRUBIN,TOTAL 0.6 mg/dL (0.2-1.0); CREATININE 0.6 mg/dL (0.5-1.5); POTASSIUM 3.9 mmol/L (3.5-5.1); TOTAL PROTEIN, SERUM 8.1 g/dL (6.0-8.3)
[2020-08-04 08:00] VITALS: BP 113/86
[2020-08-04] MEDS: FAMOTIDINE/PF 20 MG/2 ML VIAL IV SCH ×2 (08:20→20:14)
[2020-08-04] MEDS: ENOXAPARIN SODIUM 40 MG/0.4 ML SYRINGE SQ SCH (08:20)
[2020-08-04 12:00] VITALS: BP 127/88
[2020-08-04 16:00] VITALS: BP 109/77
[2020-08-04 20:03] VITALS: BP 136/85
[2020-08-04 23:46] VITALS: BP 146/84
[2020-08-05] MEDS: DOXYCYCLINE 100MG+NS 250ML 250 ML IV SCH ×2 (00:12→12:55)
[2020-08-05] MEDS: CEFEPIME HCL 2 GM VIAL IVP SCH ×2 (00:12→12:55)
[2020-08-05 04:00] VITALS: BP 136/86
[2020-08-05 04:47] LABS: BASOPHILS % (AUTO) 0.4 % (0.0-5.0); EOSINOPHILS % (AUTO) 4.5 % (0.0-8.0); HEMATOCRIT 38.5 % (42-54); LYMPHOCYTES % (AUTO) 19.3 % (21.0-51.0); MEAN CORPUSCULAR HEMOGLOBIN 29.6 pg (27.0-33.0); MEAN CORPUSCULAR HGB CONC 31.7 g/dL (32.0-36.0); MEAN CORPUSCULAR VOLUME 93.4 fL (79-99); MONOCYTES % (AUTO) 7.8 % (3.0-13.0); NEUTROPHILS % (AUTO) 67.6 % (40.0-77.0); PLATELET COUNT (AUTO) 206 K/uL (130-400); RED BLOOD CELL COUNT(AUTO) 4.12 MIL/uL (4.50-6.20); WHITE BLOOD COUNT (AUTO) 7.6 K/uL (4.8-10.8)
[2020-08-05 05:03] LABS: ALBUMIN 2.4 g/dL (3.5-5.0); CREATININE 0.7 mg/dL (0.5-1.5); POTASSIUM 3.8 mmol/L (3.5-5.1)
[2020-08-05 05:17] LABS: BILIRUBIN,TOTAL 0.6 mg/dL (0.2-1.0)
[2020-08-05 08:00] VITALS: BP 137/86
[2020-08-05] MEDS: ENOXAPARIN SODIUM 40 MG/0.4 ML SYRINGE SQ SCH (08:11)
[2020-08-05] MEDS: FAMOTIDINE/PF 20 MG/2 ML VIAL IV SCH ×2 (08:11→22:02)
[2020-08-05 12:00] VITALS: BP 132/92
[2020-08-05] MEDS: FLUCONAZOLE 100 MG TAB PO SCH (14:02)
[2020-08-05 16:00] VITALS: BP 137/91
[2020-08-05 19:00] VITALS: BP 151/94
[2020-08-05] MEDS: ACETAMINOPHEN 325 MG TAB PO PRN (22:16)
[2020-08-06] VITALS (7 sets, daily range): BP systolic 129–148; BP diastolic 85–96
[2020-08-06] MEDS: DOXYCYCLINE 100MG+NS 250ML 250 ML IV SCH ×2 (00:57→14:34)
[2020-08-06] MEDS: CEFEPIME HCL 2 GM VIAL IVP SCH ×2 (00:57→14:34)
[2020-08-06 05:21] LABS: BASOPHILS % (AUTO) 0.5 % (0.0-5.0); EOSINOPHILS % (AUTO) 4.3 % (0.0-8.0); HEMATOCRIT 38.6 % (42-54); LYMPHOCYTES % (AUTO) 22.2 % (21.0-51.0); MEAN CORPUSCULAR HEMOGLOBIN 29.7 pg (27.0-33.0); MEAN CORPUSCULAR HGB CONC 32.9 g/dL (32.0-36.0); MEAN CORPUSCULAR VOLUME 90.4 fL (79-99); MONOCYTES % (AUTO) 9.6 % (3.0-13.0); NEUTROPHILS % (AUTO) 62.8 % (40.0-77.0); PLATELET COUNT (AUTO) 228 K/uL (130-400); RED BLOOD CELL COUNT(AUTO) 4.27 MIL/uL (4.50-6.20); RED CELL DISTRIBUTION WIDTH 13.6 % (11.0-15.5); WHITE BLOOD COUNT (AUTO) 6.3 K/uL (4.8-10.8)
[2020-08-06 05:47] LABS: ALBUMIN 2.5 g/dL (3.5-5.0); BILIRUBIN,TOTAL 0.5 mg/dL (0.2-1.0); CREATININE 0.6 mg/dL (0.5-1.5); POTASSIUM 3.5 mmol/L (3.5-5.1); TOTAL PROTEIN, SERUM 8.1 g/dL (6.0-8.3)
[2020-08-06] MEDS: FAMOTIDINE/PF 20 MG/2 ML VIAL IV SCH ×2 (10:04→20:43)
[2020-08-06] MEDS: ENOXAPARIN SODIUM 40 MG/0.4 ML SYRINGE SQ SCH (10:04)
[2020-08-06] MEDS ORDERED: POTASSIUM CHLORIDE 20 MEQ ERTAB PO SCH (11:20)
[2020-08-06] MEDS: FLUCONAZOLE 100 MG TAB PO SCH (14:34)
[2020-08-06] MEDS: ACETAMINOPHEN 325 MG TAB PO PRN (20:44)
[2020-08-07] VITALS (7 sets, daily range): BP systolic 113–150; BP diastolic 79–102
[2020-08-07] MEDS: CEFEPIME HCL 2 GM VIAL IVP SCH ×2 (01:52→13:55)
[2020-08-07] MEDS: DOXYCYCLINE 100MG+NS 250ML 250 ML IV SCH ×2 (01:52→13:55)
[2020-08-07 04:22] LABS: BASOPHILS % (AUTO) 0.5 % (0.0-5.0); HEMATOCRIT 39.7 % (42-54); MEAN CORPUSCULAR HEMOGLOBIN 28.7 pg (27.0-33.0); MEAN CORPUSCULAR HGB CONC 31.5 g/dL (32.0-36.0); MEAN CORPUSCULAR VOLUME 91.1 fL (79-99); MONOCYTES % (AUTO) 9.7 % (3.0-13.0); NEUTROPHILS % (AUTO) 58.3 % (40.0-77.0); PLATELET COUNT (AUTO) 242 K/uL (130-400); RED BLOOD CELL COUNT(AUTO) 4.36 MIL/uL (4.50-6.20); WHITE BLOOD COUNT (AUTO) 6.6 K/uL (4.8-10.8)
[2020-08-07 04:51] LABS: ALBUMIN 2.5 g/dL (3.5-5.0); BILIRUBIN,TOTAL 0.4 mg/dL (0.2-1.0); CREATININE 0.6 mg/dL (0.5-1.5); POTASSIUM 3.8 mmol/L (3.5-5.1); TOTAL PROTEIN, SERUM 8.1 g/dL (6.0-8.3)
[2020-08-07] MEDS: ENOXAPARIN SODIUM 40 MG/0.4 ML SYRINGE SQ SCH (09:28)
[2020-08-07] MEDS: FAMOTIDINE/PF 20 MG/2 ML VIAL IV SCH ×2 (09:28→21:21)
[2020-08-07] MEDS: FLUCONAZOLE 100 MG TAB PO SCH (13:55)
[2020-08-07] MEDS ORDERED: FLUC100T8 PO (14:46)
[2020-08-07] MEDS: ACETAMINOPHEN 325 MG TAB PO PRN (21:20)
[2020-08-08] MEDS: DOXYCYCLINE 100MG+NS 250ML 250 ML IV SCH ×2 (01:34→11:44)
[2020-08-08] MEDS: CEFEPIME HCL 2 GM VIAL IVP SCH ×2 (01:34→11:44)
[2020-08-08 04:00] VITALS: BP 128/74
[2020-08-08 05:11] LABS: BASOPHILS % (AUTO) 0.6 % (0.0-5.0); EOSINOPHILS % (AUTO) 4.3 % (0.0-8.0); HEMATOCRIT 38.7 % (42-54); LYMPHOCYTES % (AUTO) 30.2 % (21.0-51.0); MEAN CORPUSCULAR HEMOGLOBIN 29.6 pg (27.0-33.0); MEAN CORPUSCULAR HGB CONC 32.6 g/dL (32.0-36.0); MEAN CORPUSCULAR VOLUME 90.8 fL (79-99); MONOCYTES % (AUTO) 9.2 % (3.0-13.0); NEUTROPHILS % (AUTO) 55.1 % (40.0-77.0); PLATELET COUNT (AUTO) 241 K/uL (130-400); RED BLOOD CELL COUNT(AUTO) 4.26 MIL/uL (4.50-6.20); WHITE BLOOD COUNT (AUTO) 6.7 K/uL (4.8-10.8)
[2020-08-08 05:33] LABS: ALBUMIN 2.6 g/dL (3.5-5.0); BILIRUBIN,TOTAL 0.4 mg/dL (0.2-1.0); CREATININE 0.6 mg/dL (0.5-1.5); POTASSIUM 3.9 mmol/L (3.5-5.1)
[2020-08-08 08:00] VITALS: BP 146/98
[2020-08-08] MEDS: ENOXAPARIN SODIUM 40 MG/0.4 ML SYRINGE SQ SCH (08:50)
[2020-08-08] MEDS: FAMOTIDINE/PF 20 MG/2 ML VIAL IV SCH ×2 (08:51→20:39)
[2020-08-08 11:42] VITALS: BP 143/94
[2020-08-08] MEDS: FLUCONAZOLE 100 MG TAB PO SCH (15:24)
[2020-08-08 16:00] VITALS: BP 145/92
[2020-08-08 19:25] VITALS: BP 147/91
[2020-08-08 23:58] VITALS: BP 128/72
[2020-08-09] MEDS: CEFEPIME HCL 2 GM VIAL IVP SCH ×2 (02:39→12:12)
[2020-08-09] MEDS: DOXYCYCLINE 100MG+NS 250ML 250 ML IV SCH ×2 (02:39→12:12)
[2020-08-09 04:18] VITALS: BP 142/62
[2020-08-09 05:05] LABS: BASOPHILS % (AUTO) 0.5 % (0.0-5.0); EOSINOPHILS % (AUTO) 3.9 % (0.0-8.0); HEMATOCRIT 40.1 % (42-54); LYMPHOCYTES % (AUTO) 25.3 % (21.0-51.0); MEAN CORPUSCULAR HEMOGLOBIN 28.9 pg (27.0-33.0); MEAN CORPUSCULAR HGB CONC 31.7 g/dL (32.0-36.0); MEAN CORPUSCULAR VOLUME 91.1 fL (79-99); NEUTROPHILS % (AUTO) 60.5 % (40.0-77.0); PLATELET COUNT (AUTO) 271 K/uL (130-400); RED CELL DISTRIBUTION WIDTH 14.1 % (11.0-15.5); WHITE BLOOD COUNT (AUTO) 7.9 K/uL (4.8-10.8)
[2020-08-09 05:38] LABS: ALBUMIN 2.7 g/dL (3.5-5.0); BILIRUBIN,TOTAL 0.4 mg/dL (0.2-1.0); CREATININE 0.6 mg/dL (0.5-1.5); POTASSIUM 4.2 mmol/L (3.5-5.1); TOTAL PROTEIN, SERUM 8.3 g/dL (6.0-8.3)
[2020-08-09 08:00] VITALS: BP 136/87
[2020-08-09] MEDS: FAMOTIDINE/PF 20 MG/2 ML VIAL IV SCH ×2 (10:10→20:14)
[2020-08-09] MEDS: ENOXAPARIN SODIUM 40 MG/0.4 ML SYRINGE SQ SCH (10:11)
[2020-08-09 12:00] VITALS: BP 158/100
[2020-08-09] MEDS: FLUCONAZOLE 100 MG TAB PO SCH (13:32)
[2020-08-09 13:42] VITALS: BP 135/93
[2020-08-09 16:00] VITALS: BP 154/98
[2020-08-09 20:00] VITALS: BP_SYST 116; BP_SYST 141; BP_DIAS 110; BP_DIAS 65
[2020-08-09] MEDS ORDERED: ENOXAPARIN SODIUM 40 MG/0.4 ML SYRINGE SQ SCH (21:00)
[2020-08-10] VITALS: BP 161/74
[2020-08-10] MEDS: DOXYCYCLINE 100MG+NS 250ML 250 ML IV SCH ×2 (00:45→12:12)
[2020-08-10] MEDS: CEFEPIME HCL 2 GM VIAL IVP SCH ×2 (00:45→12:11)
[2020-08-10 04:00] VITALS: BP_SYST 129; BP_SYST 150; BP_DIAS 71; BP_DIAS 81
[2020-08-10 07:08] LABS: EOSINOPHILS % (AUTO) 4.9 % (0.0-8.0); HEMATOCRIT 40.2 % (42-54); LYMPHOCYTES % (AUTO) 36.4 % (21.0-51.0); MEAN CORPUSCULAR HEMOGLOBIN 29.4 pg (27.0-33.0); MEAN CORPUSCULAR HGB CONC 32.1 g/dL (32.0-36.0); MEAN CORPUSCULAR VOLUME 91.6 fL (79-99); MONOCYTES % (AUTO) 9.7 % (3.0-13.0); PLATELET COUNT (AUTO) 283 K/uL (130-400); RED BLOOD CELL COUNT(AUTO) 4.39 MIL/uL (4.50-6.20); RED CELL DISTRIBUTION WIDTH 14.4 % (11.0-15.5); WHITE BLOOD COUNT (AUTO) 7.8 K/uL (4.8-10.8)
[2020-08-10 07:24] LABS: CREATININE 0.8 mg/dL (0.5-1.5); POTASSIUM 4.2 mmol/L (3.5-5.1)
[2020-08-10] MEDS: FAMOTIDINE/PF 20 MG/2 ML VIAL IV SCH (07:42)
[2020-08-10 08:00] VITALS: BP 136/84
[2020-08-10] MEDS ORDERED: APIXABAN 5 MG TABLET PO SCH (09:00)
[2020-08-10] MEDS ORDERED: APIX5TAB PO (09:44)
[2020-08-10] MEDS: FLUCONAZOLE 100 MG TAB PO SCH (12:12)
== END 2020-08-10 19:31 | disposition home or self-care (01) | DRG 177 ==
LOC: EDH 21:10 → EDHIP 21:11 → 2AH 08-03 01:59 → 4AH 08-05 18:38
PROVIDERS: ADMIT Family Medicine; ATTEND Family Medicine
PROC: 0X9 Anatomical Regions, Upper Extremities, Drainage (ICD-10-PCS; principal; 2020-08-04)
DX: J15.6 Pneumonia due to other Gram-negative bacteria (principal); J96.21 Acute and chronic respiratory failure with hypoxia; L02.414 Cutaneous abscess of left upper limb; L03.114 Cellulitis of left upper limb; D68.69 Other thrombophilia; K52.9 Noninfective gastroenteritis and colitis, unspecified; I80.8 Phlebitis and thrombophlebitis of other sites; I10 Essential (primary) hypertension; E11.9 Type 2 diabetes mellitus without complications; K82.8 Other specified diseases of gallbladder; E66.9 Obesity, unspecified; R53.81 Other malaise; K81.9 Cholecystitis, unspecified; K57.30 Diverticulosis of large intestine without perforation or abscess without bleeding; G24.9 Dystonia, unspecified; Z20.822 Contact with and (suspected) exposure to COVID-19; Z68.30 Body mass index [BMI] 30.0-30.9, adult; Z99.81 Dependence on supplemental oxygen; Z83.3 Family history of diabetes mellitus
CPT/HCPCS: 36415; 71046; 71275; 74018; 74177; 76705; 76882; 78227; 80048; 80053; 82728; 82948; 83605; 83690; 83880; 84145; 84484; 85025; 85378; 85610; 85730; 86140; 87040; 87070; 87076; 87426; 93005; 94760; 99291; A9537; G0378; J0456; J0692; J0696; J1650; J3490; Q9967; U0003